=== PATIENT | male | born 1995 | race Caucasian/White ===

== ENCOUNTER 2018-02-16 15:33 | Emergency (ER) | payer BC, SELFPAY ==
[2018-02-16 15:33] VITALS: BP 132/85; PULSE 96; RESP 12; TEMP 36.9; O2SAT 99; BMI 31.7
--- NOTE | 2018-02-16 15:47 | ED.DCSUM_ITS ---
- ER Visit Summary Date of Service: 02/16/18 Chief Complaint: Rash History of Present Illness: The patient is a 22 M past medical or surgical history. Currently on no medications. No known allergies. He was simulated. Yesterday. Today he has a rash along his buttock and lower back. It itches and asher. He denies any other symptoms. No nausea, vomiting or diarrhea. She does not know specifically if there is any do with him swimming or not. He has no any he has been is exposed to any is on no medications. Physical Examination: Well appearing young male. Vital signs are stable afebrile. He does not look septic or toxic. He is in no acute distress. H EENT exam unremarkable. No swelling in his lips or tongue. No facial rash. Neck nontender. Lungs clear to auscultation bilaterally. Heart regular rhythm no murmur. Abdomen is soft and nontender normal bowel sounds no peritoneal signs. He is moving all 4 extremities neurovascularly intact. Back exam is unremarkable except he does have a rash lower back and upper buttocks consistent with highs. There is no petechiae or purpura. There is no vesicles or blistering. There is no sloughing of skin. There is no cellulitis. Neurologic exam is awake alert with no focal motor deficits. Test Results: None Emergency Department Course and Treatment: Treated with oral prednisone here. Treatment Plan: Prednisone prescription 40 day for 1 week. He was instructed to stop the prednisone 2 days after the rash resolves. Return if feeling worse. Disposition: Discharge Impression: Acute rash consistent with hives This note was generated with [employer] dictation software. It may contain incorrect words, spelling, and punctuation that were not noted in review of the chart prior to signing ED Disposition - Plan for ED Patient: Chief Complaint: Rash
--- NOTE | 2018-02-16 15:47 | ED.DEP ---
ED Disposition - Plan for ED Patient: Disposition: Home or Assisted Living Chief Complaint: Rash Instructions: ED Urticaria Prescriptions: Prednisone [Deltasone] 40 mg PO DAILY 7 Days tab Referrals: Stacie Rudd [NON-STAFF] - 1 Week if not improving Additional Instructions: Benadryl and prednisone to resolve the rash. You may stop the prednisone 2 days after the rash is gone. Return if feeling a lot worse or the rash is getting a lot worse. Or follow-up with a clinical cytogeneticist.
[2018-02-16] MEDS: predniSONE 20 MG Tablet 60 MG PO (15:52)
== END 2018-02-16 16:12 | disposition home or self-care (01) ==
LOC: ED 16:04
PROVIDERS: Emergency Provider Emergency Medicine
DX: L50.9 Urticaria, unspecified (principal); Z72.0 Tobacco use
CPT/HCPCS: 99282